=== PATIENT | male | born 1985 | race Caucasian/White ===

== ENCOUNTER 2021-11-04 18:15 | Emergency (ER) | payer OTHER ==
[~2021-11-04] VITALS: Ht 167.6 cm; Wt 59.0 kg
[2021-11-04 18:20] VITALS: BP 111/76
--- NOTE | 2021-11-04 18:25 | NUR ---
SEEN AND EXAMINED BY .
--- NOTE | 2021-11-04 18:35 | NUR ---
Patient discharged in custody in stable condition. Written and verbal after care instructions given. Patient verbalizes understanding of instruction.
== END 2021-11-04 18:37 ==
LOC: ER 18:15
DX: Z02.89 Encounter for other administrative examinations (principal); R45.1 Restlessness and agitation; F11.20 Opioid dependence, uncomplicated

== ENCOUNTER 2021-12-03 10:10 | Emergency (ER) | payer MEDICAID, OTHER ==
[~2021-12-03] VITALS: Ht 175.3 cm; Wt 65.8 kg
[2021-12-03 10:17] VITALS: BP 129/81
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
--- NOTE | 2021-12-03 10:26 | NUR ---
X RAY AT BEDSIDE
--- NOTE | 2021-12-03 10:34 | NUR ---
Patient discharged to home in stable condition. Written and verbal after care instructions given. Patient verbalizes understanding of instruction.
== END 2021-12-03 10:34 | disposition home or self-care (01) ==
LOC: ER 10:13
DX: S20.219A Contusion of unspecified front wall of thorax, initial encounter (principal); F17.200 Nicotine dependence, unspecified, uncomplicated; Z60.2 Problems related to living alone; Y04.2XXA Assault by strike against or bumped into by another person, initial encounter; Y93.89 Activity, other specified; Y92.89 Other specified places as the place of occurrence of the external cause; Y99.8 Other external cause status
CPT/HCPCS: 71045-TC

== ENCOUNTER 2023-11-16 02:35 | Emergency (ER) | payer MEDICAID, OTHER ==
[~2023-11-16] VITALS: Ht 172.7 cm; Wt 63.5 kg
[2023-11-16 06:19] VITALS: BP 121/79; TEMP 98.7; O2SAT 97
== END 2023-11-16 06:19 | disposition home or self-care (01) ==
LOC: ER 02:40
DX: S01.21XD Laceration without foreign body of nose, subsequent encounter (principal); S13.4XXA Sprain of ligaments of cervical spine, initial encounter; S09.90XA Unspecified injury of head, initial encounter; M79.652 Pain in left thigh; M79.651 Pain in right thigh; Z60.2 Problems related to living alone; Y08.09XA Assault by strike by other specified type of sport equipment, initial encounter; Y93.89 Activity, other specified; Y92.89 Other specified places as the place of occurrence of the external cause; Y99.8 Other external cause status
CPT/HCPCS: 70450-TC; 70486-TC; 72125-TC; 73552